=== PATIENT | male | born 1965 | race Caucasian/White ===

== ENCOUNTER 2018-08-29 19:08 | Emergency (ER) | payer OTHER ==
[2018-08-29] MEDS ORDERED: Sodium Chloride 0.9% 10 ML Syringe FLUSH PRN (19:14)
[2018-08-29] MEDS ORDERED: diphenhydrAMINE 50 MG/ML SDV IVPUSH ONE (19:15)
[2018-08-29] MEDS ORDERED: Famotidine 20 MG/2 ML SDV IVPUSH ONE (19:15)
[2018-08-29] MEDS ORDERED: methylPREDNISolone Sodium Succinate 125 MG/2 ML SDV IVPUSH ONE (19:15)
[2018-08-29] MEDS ORDERED: Sodium Chloride 0.9% 1,000 ML IV ONE (19:16)
--- NOTE | 2018-08-29 19:21 | EDM.PDOC ---
ED HPI GENERAL MEDICAL PROBLEM - General Chief Complaint: Allergic Reaction Stated Complaint: ALLERGIC REACTION Time Seen by Provider: 08/29/18 19:10 Source of Information: Reports: Patient History Limitations: Reports: No Limitations - History of Present Illness INITIAL COMMENTS - FREE TEXT/NARRATIVE: Andrew is a 52 year old male who presents to the ED today with swollen upper lip that started suddenly an hour prior to arrival. Patient took Benadryl, denies any sob, trouble swallowing or hx of allergies/stings. Patient has been taking Augmentin for the last 8 days for his throat, patient reports it was "red", he was not tested for strep throat. Patient has tolerated Amoxicillin in the past. Patient denies any other new medication, foods/soaps/lotions. Patient reports he had hives to ankles and feet yesterday and swollen hands, hives resolved, swelling in hands has improved, no current rash. Onset: Today, Sudden - Related Data Allergies Allergy/AdvReac Type Severity Reaction Status Date / Time amoxicillin [From Augmentin] Allergy Hives Verified 08/29/18 19:22 clavulanic acid Allergy Hives Verified 08/29/18 19:22 [From Augmentin] Home Meds: Home Meds Glimepiride 4 mg PO DAILY 08/29/18 [History] Lisinopril 40 mg PO DAILY 08/29/18 [History] Metoprolol Succinate [Toprol XL] 25 mg PO ASDIRECTED 08/29/18 [History] Simvastatin 20 mg PO DAILY 08/29/18 [History] metFORMIN [Glucophage] 1,000 mg PO ASDIRECTED 08/29/18 [History] ED ROS ALLERGIC REACTION - Review of Systems Review Of Systems: ROS reveals no pertinent complaints other than HPI. ED EXAM GENERAL NO PERIP PULSE - Physical Exam Exam: See Below Exam Limited By: No Limitations General Appearance: Alert, WD/WN, Anxious Eye Exam: Bilateral Eye: EOMI Ears: Normal External Exam Throat/Mouth: Normal Inspection, Normal Oropharynx, Other (significant upper lip swelling) Head: Atraumatic, Normocephalic Neck: Normal Inspection, Supple, Non-Tender Respiratory/Chest: No Respiratory Distress, Lungs Clear, Normal Breath Sounds, No Accessory Muscle Use Cardiovascular: Normal Peripheral Pulses, No Murmur, Tachycardia GI/Abdominal: Normal Bowel Sounds, Soft, Non-Tender Back Exam: Normal Inspection Extremities: Normal Inspection, Normal Range of Motion, Other (mild edema to bilateral hands) Neurological: Alert, Oriented, CN II-XII Intact Psychiatric: Normal Affect, Anxious Skin Exam: Warm, Dry, Intact, No Rash Lymphatic: No Adenopathy Course - Vital Signs Last Recorded V/S: Last Vital Signs Temp 36.5 C 08/29/18 19:25 Pulse 102 H 08/29/18 19:52 Resp 9 L 08/29/18 19:52 BP 115/69 08/29/18 19:52 Pulse Ox 96 08/29/18 19:52 Andrew is a 52 year old male, hx of diabetes, HTN, and high cholesterol who presents to the ED today with c/o upper lip swelling that started suddenly prior to arrival. Please refer to HPI and focused exam. PIV established on arrival, patient given IV fluids, Benadryl, Solu-Medrol and Pepcid. Patient's lip swelling improved here. It is likely that patient's angioedema was related to his Augmentin given the history of hand swelling and hives that were present yesterday making it less likely that this is related to his EARL inhibitor although this is still a possibility. He has been on lisinopril for 20 years. Augmentin was discontinued and this is now listed as an allergy. I will send patient home on a 5 day course of prednisone to hopefully keep any return of angioedema at bay, if he continues to have issues than likely the Lisinopril will need to be discontinued. Patient updated on plan of care and is agreeable , he was discharged in stable condition with his sister driving who is a RN. - Orders/Labs/Meds Orders: Active Orders 24 hr Category Date Time Status Peripheral IV Care [RC] . DIRECTED Care 08/29/18 19:14 Active Sodium Chloride 0.9% [Saline Flush] Med 08/29/18 19:14 Active 10 ml FLUSH ASDIRECTED PRN Peripheral IV Insertion Adult [OM.PC] Routine Oth 08/29/18 19:14 Ordered Medication Orders Sodium Chloride (Saline Flush) 10 ml FLUSH ASDIRECTED PRN PRN Reason: Keep Vein Open Last Admin: 08/29/18 19:46 Dose: 10 ml Meds: Medications Generic Name Dose Route Start Last Admin Trade Name Freq PRN Reason Stop Dose Admin Sodium Chloride 10 ml 08/29/18 19:14 08/29/18 19:46 Saline Flush FLUSH 10 ml ASDIRECTED PRN Administration Keep Vein Open Discontinued Medications Generic Name Dose Route Start Last Admin Trade Name Az PRN Reason Stop Dose Admin Diphenhydramine HCl 25 mg 08/29/18 19:15 08/29/18 19:45 Benadryl IVPUSH 08/29/18 19:16 25 mg ONETIME ONE Administration Famotidine 20 mg 08/29/18 19:15 08/29/18 19:38 Pepcid IVPUSH 08/29/18 19:16 20 mg ONETIME ONE Administration Sodium Chloride 1,000 mls @ 999 mls/hr 08/29/18 19:16 08/29/18 19:36 Normal Saline IV 08/29/18 20:16 999 mls/hr .BOLUS ONE Administration Methylprednisolone Sodium Succinate 125 mg 08/29/18 19:15 08/29/18 19:44 Solu-Medrol IVPUSH 08/29/18 19:16 125 mg ONETIME ONE Administration Departure - Departure Time of Disposition: 21:30 Disposition: Home, Self-Care 01 Condition: Good Clinical Impression: Angioedema Qualifiers: Encounter type: initial encounter Qualified Code(s): T78.3XXA - Angioneurotic edema, initial encounter - Discharge Information Instructions: Allergies, Adult, [id number], Angioedema, [id number] Forms: ED Department Discharge Additional Instructions: Andrew, it is likely that your lip swelling or angioedema today is from the Augmentin, I have this now listed as an allergy and you should avoid this in the future as well as any Amoxicillin containing antibiotics. That being said, Lisinopril can cause this reaction as well which can happen even after years of taking it. I feel this is less likely given the hives and hand swelling you developed yesterday, as these symptoms we don't typically see. I am going to send you home on Prednisone for 5 days, this is a steroid that should help prevent return of your symptoms, however, if they do return we may need to stop the Lisinopril. You can start the Prednisone tomorrow morning. You can continue Benadryl 25mg every 4 hours as needed as well as Zantac 150 twice daily for 5 days. If you develop any worsening symptoms or concerns please return here. The prednisone will likely increase your blood sugars a modest amount so just keep an eye on them. Take care and good luck with everything. - My Orders Last 24 Hours: My Active Orders 08/29/18 19:14 Peripheral IV Care [RC] . DIRECTED Sodium Chloride 0.9% [Saline Flush] 10 ml FLUSH ASDIRECTED PRN Peripheral IV Insertion Adult [OM.PC] Routine - Assessment/Plan Last 24 Hours: My Active Orders 08/29/18 19:14 Peripheral IV Care [RC] . DIRECTED Sodium Chloride 0.9% [Saline Flush] 10 ml FLUSH ASDIRECTED PRN Peripheral IV Insertion Adult [OM.PC] Routine
== END 2018-08-29 21:00 | disposition home or self-care (01) ==
LOC: JP.ED 19:08
DX: T78.3XXA Angioneurotic edema, initial encounter (principal); Z79.899 Other long term (current) drug therapy; Z88.1 Allergy status to other antibiotic agents
CPT/HCPCS: 96361; 96374; 96375; 99284; J1200; J2930; J3490; J7030